=== PATIENT | female | born 1945 | race Caucasian/White ===

== ENCOUNTER 2017-11-03 19:43 | Emergency (ER) | payer MEDICARE, BC ==
[2017-11-03] MEDS ORDERED: Sodium Chloride 0.9% 1,000 ML IV ONE (20:04)
[2017-11-03 20:21] LABS: CHLORIDE,CL 102 mmol/L (101-111); SODIUM,NA 136 mmol/L (135-145)
--- NOTE | 2017-11-03 20:27 | EDM.PDOC ---
ED HPI GENERAL MEDICAL PROBLEM - General Chief Complaint: General Stated Complaint: DIZZY,LIGHTHEADED,NAUSATED [id number] Time Seen by Provider: 11/03/17 20:10 Source of Information: Reports: Patient History Limitations: Reports: No Limitations - History of Present Illness INITIAL COMMENTS - FREE TEXT/NARRATIVE: This 72 yo female patient reports to the ED with a 1 day history of nausea, dizziness and decreased appetite. The patient reports she has not vomited and has not had diarrhea. The patient took Tylenol prior to coming to the ED, but does not believe she had an elevated temp. 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 - Related Data Allergies Allergy/AdvReac Type Severity Reaction Status Date / Time No Known Allergies Allergy Verified 11/03/17 19:55 Home Meds: Home Meds Atenolol [Tenormin] 25 mg PO DAILY 10/30/14 [History] Calcium Carbonate/Vitamin D3 [Calcium 600 + Vit D Tablet] 1 each PO DAILY [History] Diclofenac Sodium [Voltaren] 75 mg PO DAILY 10/30/14 [History] Glucosamine [Glucosamine Sulfate] 500 mg PO DAILY 10/30/14 [History] Losartan [Cozaar] 100 mg PO DAILY 10/30/14 [History] amLODIPine Besylate [Amlodipine Besylate] 5 mg PO DAILY 10/30/14 [History] Ciprofloxacin HCl [Cipro] 250 mg PO BID 05/04/15 [History] cycloSPORINE [Restasis] 1 drop EYEBOTH BID 11/14/16 [History] Tiotropium [Spiriva HandiHaler] 1 spray INH DAILY 11/15/16 [History] Aspirin [Ecotrin] 81 mg PO DAILY 12/21/16 [History] Clopidogrel [Plavix] 75 mg PO DAILY 12/21/16 [History] atorvaSTATin [Lipitor] 20 mg PO BEDTIME 12/21/16 [History] Gabapentin [Neurontin] 100 mg PO TID 11/03/17 [History] Omeprazole [Omeprazole] 20 mg PO DAILY 11/03/17 [History] Simvastatin [Zocor] 10 mg PO BEDTIME 11/03/17 [History] Past Medical History HEENT History: Reports: Impaired Vision Other HEENT History: wears glasses Cardiovascular History: Reports: PTCA, Stents Other Cardiovascular History: Respiratory History: Reports: COPD Other Respiratory History: uses c-pap Gastrointestinal History: Reports: Irritable Bowel Syndrome Genitourinary History: Reports: None Musculoskeletal History: Reports: Arthritis Other Musculoskeletal History: bad disc. Left hip arthritis Social & Family History - Tobacco Use Smoking Status *Q: Never Smoker Years of Tobacco use: 40 Used Tobacco, but Quit: Yes Month Tobacco Last Used: 17 years ago Second Hand Smoke Exposure: No - Caffeine Use Caffeine Use: Reports: Coffee, Soda Caffeine Use Comment: decaf - Alcohol Use Days Per Week of Alcohol Use: 0 - Recreational Drug Use Recreational Drug Use: No ED ROS GENERAL - Review of Systems Review Of Systems: ROS reveals no pertinent complaints other than HPI. ED EXAM, GENERAL - Physical Exam Exam: See Below Exam Limited By: No Limitations General Appearance: Alert, WD/WN, Mild Distress Eye Exam: Bilateral Eye: EOMI, Normal Inspection, PERRL Ears: Normal External Exam, Normal Canal, Hearing Grossly Normal, Normal TMs Nose: Normal Inspection, Normal Mucosa, No Blood Throat/Mouth: Normal Inspection, Normal Lips, Normal Teeth, Normal Gums, Normal Oropharynx, Normal Voice, No Airway Compromise Head: Atraumatic, Normocephalic Neck: Normal Inspection, Supple, Non-Tender, Full Range of Motion Respiratory/Chest: No Respiratory Distress, Lungs Clear, Normal Breath Sounds, No Accessory Muscle Use, Chest Non-Tender Cardiovascular: Normal Peripheral Pulses, Regular Rate, Rhythm, No Edema, No Gallop, No JVD, No Murmur, No Rub GI/Abdominal: Normal Bowel Sounds, Soft, Non-Tender, No Organomegaly, No Distention, No Abnormal Bruit, No Mass (Female) Exam: Deferred Rectal (Female) Exam: Deferred Back Exam: Normal Inspection, Full Range of Motion, NT Extremities: Normal Inspection, Normal Range of Motion, Non-Tender, Normal Capillary Refill, No Pedal Edema Neurological: Alert, Oriented, CN II-XII Intact, Normal Cognition, Normal Gait, Normal Reflexes, No Motor/Sensory Deficits Psychiatric: Normal Affect, Normal Mood Skin Exam: Warm, Dry, Intact, Normal Color, No Rash Lymphatic: No Adenopathy Course - Vital Signs Last Recorded V/S: Last Vital Signs Temp 35.9 C 11/03/17 19:47 Pulse 69 11/03/17 19:47 Resp 19 11/03/17 19:47 BP 157/85 H 11/03/17 19:47 Pulse Ox 97 11/03/17 19:47 - Orders/Labs/Meds Orders: Active Orders 24 hr Category Date Time Status EKG Documentation Completion [RC] URGENT Care 11/03/17 20:04 Active Sodium Chloride 0.9% [Normal Saline] 1,000 ml Med 11/03/17 20:04 Active IV .BOLUS Medication Orders Sodium Chloride (Normal Saline) 1,000 mls @ 500 mls/hr IV .BOLUS ONE Stop: 11/03/17 22:03 Last Admin: 11/03/17 20:18 Dose: 500 mls/hr Labs: Laboratory Tests 11/03/17 11/03/17 Range/Units 19:50 19:50 WBC 6.9 (5.0-10.0) 10^3/uL RBC 4.94 (4.2-5.4) 10^6/uL Hgb 14.4 (12.0-16.0) g/dL Hct 44.4 (37.0-47.0) % MCV 89.9 (80-100) fL MCH 29.1 (27.0-34.0) pg MCHC 32.4 L (33.0-35.0) g/dL Plt Count 152 D (150-450) 10^3/uL Neut % (Auto) 62.6 (42.2-75.2) % Lymph % (Auto) 26.4 (20.5-50.1) % Duchesne % (Auto) 8.7 H (2-8) % Eos % (Auto) 2.0 (1.0-3.0) % Baso % (Auto) 0.3 (0.0-1.0) % Sodium 136 (135-145) mmol/L Potassium 4.2 (3.6-5.0) mmol/L Chloride 102 (101-111) mmol/L Carbon Dioxide 25.0 (21.0-31.0) mmol/L Anion Gap 13.2 BUN 23 H (7-18) mg/dL Creatinine 0.8 D (0.6-1.3) mg/dL Est Cr Clr Drug Dosing 57.75 mL/min Estimated GFR (MDRD) > 60 BUN/Creatinine Ratio 28.75 Glucose 88 (74-105) mg/dL Calcium 9.5 (8.4-10.2) mg/dl Total Bilirubin 0.7 (0.2-1.0) mg/dL AST 16 (10-42) IU/L ALT 14 (10-60) IU/L Alkaline Phosphatase 65 (42-121) IU/L Troponin I < 0.02 (0.00-0.02) ng/ml Total Protein 7.0 (6.7-8.2) g/dl Albumin 4.2 (3.2-5.5) g/dl Globulin 2.8 Albumin/Globulin Ratio 1.50 Meds: Medications Generic Name Dose Route Start Last Admin Trade Name Freq PRN Reason Stop Dose Admin Sodium Chloride 1,000 mls @ 500 mls/hr 11/03/17 20:04 11/03/17 20:18 Normal Saline IV 11/03/17 22:03 500 mls/hr .BOLUS ONE Administration Departure - Departure Time of Disposition: 21:00 Disposition: Home, Self-Care 01 Condition: Fair Clinical Impression: Viral gastroenteritis - Discharge Information Instructions: Viral Gastroenteritis, Adult Forms: ED Department Discharge Care Plan Goals: The patient was advised of the examination, lab, x-ray and EKG results during the visit. The patient was given IV fluid while in the ED. The patient was encouraged to stick to a BRAT diet (bananas, rice, applesauce and toast) over the next 24-48 hours with small frequent sips of fluid. If the patient has any additional symptoms or concerns, the patient should either return to the emergency department or follow-up with her primary care facility. - My Orders Last 24 Hours: My Active Orders 11/03/17 20:04 EKG Documentation Completion [RC] URGENT Sodium Chloride 0.9% [Normal Saline] 1,000 ml IV .BOLUS - Assessment/Plan Last 24 Hours: My Active Orders 11/03/17 20:04 EKG Documentation Completion [RC] URGENT Sodium Chloride 0.9% [Normal Saline] 1,000 ml IV .BOLUS
[2017-11-03 21:25] VITALS: BP 138/66
--- NOTE | 2017-11-06 12:21 | EKG ---
11/03/2017 - STEPHEN ISABEL - TIME: 8:04 p.m. FINDINGS: EKG shows heart rate of 68 beats per minute, it is sinus rhythm with some sinus arrhythmia. Normal QRS complex. Normal T-waves. Normal ST segments. [facility] /[id number]
== END 2017-11-03 21:32 | disposition home or self-care (01) ==
LOC: DL.ED 19:43
DX: A08.4 Viral intestinal infection, unspecified (principal); J44.9 Chronic obstructive pulmonary disease, unspecified; Z87.891 Personal history of nicotine dependence; Z79.02 Long term (current) use of antithrombotics/antiplatelets; Z79.82 Long term (current) use of aspirin; Z79.899 Other long term (current) drug therapy
CPT/HCPCS: 36415; 71045; 80053; 84484; 85025; 87804; 93005; 96360; 99284; J7030; 93010